=== PATIENT | female | born 1990 | race Two or more races ===

== ENCOUNTER 2017-05-30 12:09 | Emergency (ER) | payer MEDICAID ==
[~2017-05-30] VITALS: Ht 149.9 cm; Wt 62.4 kg
[2017-05-30 12:13] VITALS: BP 102/60
== END 2017-05-30 13:58 | disposition home or self-care (01) ==
LOC: ED 12:28
DX: O26.892 Other specified pregnancy related conditions, second trimester (principal); J02.8 Acute pharyngitis due to other specified organisms; Z3A.21 21 weeks gestation of pregnancy
CPT/HCPCS: 36415; 86308; 99283

== ENCOUNTER 2017-09-25 12:30 | Outpatient (CLI) | payer MEDICAID ==
[~2017-09-25] VITALS: Ht 149.9 cm; Wt 70.9 kg
[~2017-09-25 12:30] MED LIST: PREN1TAB60 PO
[2017-09-25 12:47] VITALS: BP 101/63
== END 2017-09-25 14:20 | disposition home or self-care (01) ==
LOC: LDOP 12:30
PROVIDERS: ATTEND Student in an Organized Health Care Education/Training Program
DX: O26.893 Other specified pregnancy related conditions, third trimester (principal); R10.9 Unspecified abdominal pain; Z3A.38 38 weeks gestation of pregnancy
CPT/HCPCS: 59025; 99211; G0463

== ENCOUNTER 2017-09-27 12:55 | Inpatient (IN) | payer MEDICAID ==
[~2017-09-27] VITALS: Ht 147.3 cm; Wt 70.4 kg
[2017-10-06] MEDS ORDERED: D5%-LACTATED RINGERS 1,000 ML IV SCH (06:14)
[2017-10-06] MEDS ORDERED: OXYTOCIN 30U/ 0.9% NaCL 500ML 500 ML IV PRN (06:14)
[2017-10-06] MEDS ORDERED: OXYTOCIN 30U/ 0.9% NaCL 500ML 500 ML IV ONE (06:14)
[2017-10-06] MEDS ORDERED: NEWBORN KIT ONE (06:21)
[2017-10-06] MEDS ORDERED: MISOPROSTOL 200 MCG TABLET ONE (06:21)
[2017-10-06] MEDS ORDERED: LIDOCAINE 1%, 10ML ONE (06:21)
[2017-10-06] MEDS ORDERED: OXYTOCIN 30U/ 0.9% NaCL 500ML 500 ML ONE (06:21)
[2017-10-06] MEDS: LACTATED RINGERS 1,000 ML IV SCH ×5 (06:29→23:10)
[2017-10-06] MEDS ORDERED: FENTANYL PF 100 MCG/2ML IVPush PRN (06:30)
[2017-10-06] MEDS ORDERED: METOCLOPRAMIDE 5 MG/ML, 2ML IVPush PRN (06:30)
[2017-10-06] MEDS ORDERED: SODIUM CITRATE/CITRIC ACID 30 ML UDC PO PRN (06:30)
[2017-10-06] MEDS ORDERED: ONDANSETRON 2MG/ML, 2ML IVPush PRN (06:30)
[2017-10-06] MEDS ORDERED: TERBUTALINE 1 MG/ML, 1ML IVPush PRN (06:30)
[2017-10-06] MEDS ORDERED: PENICILLIN GK 5,000,000 UNITS in DEXTROSE 5% 100 ML IVPB ONE (06:30)
[2017-10-06] MEDS ORDERED: FENTANYL PF 100 MCG/2ML IV PRN (06:30)
[2017-10-06 06:48] LABS: BASOPHILS # (AUTO) 0.02 x10^3/uL (0-0.1); BASOPHILS % (AUTO) 0 % (0-1); EOSINOPHILS # (AUTO) 0.08 x10^3/uL (0-0.4); EOSINOPHILS % (AUTO) 1 % (1-7); LYMPHOCYTES # (AUTO) 2.43 x10^3/uL (1-3.4); LYMPHOCYTES % (AUTO) 24 % (22-44); MD NO; MEAN CORPUSCULAR HEMOGLOBIN 24.9 pg (27.0-34.8); MEAN CORPUSCULAR HGB CONC 32.6 g/dL (32.4-35.8); MEAN CORPUSCULAR VOLUME 76.2 fL (80-100); MEAN PLATELET VOLUME 8.6 fL (7.4-10.4); MONOCYTES # (AUTO) 0.89 x10^3/uL (0.2-0.8); MONOCYTES % (AUTO) 9 % (2-9); NEUTROPHILS # (AUTO) 6.55 x10^3/uL (1.8-6.8); NEUTROPHILS % (AUTO) 66 % (42-75); PLATELET COUNT 370 x10^3/uL (130-400); RED BLOOD COUNT 4.34 x10^6/uL (3.82-5.3); RED CELL DISTRIBUTION WIDTH 16.7 % (9.6-15.2)
[2017-10-06] MEDS: PENICILLIN GK 2,500,000 UNITS in DEXTROSE 5% 100 ML IVPB SCH ×3 (10:58→18:48)
[2017-10-06] MEDS ORDERED: FENTANYL/BUPIV./NS/PF 250 ML EPIDCONT ONE (14:05)
[2017-10-06] MEDS ORDERED: LIDOCAINE-MPF 2% ,5ML ONE (14:05)
[2017-10-06] MEDS ORDERED: BUPIVACAINE 0.25% ONE (14:08)
[2017-10-06] MEDS ORDERED: FENTANYL/BUPIV./NS/PF 250 ML EPIDCONT SCH (15:10)
[2017-10-06] MEDS ORDERED: EPHEDRINE 50 MG/ML, 1ML IVPush PRN (15:30)
[2017-10-06] MEDS ORDERED: NALOXONE 0.4 MG/ML, 1ML IVPush PRN (15:30)
[2017-10-06] MEDS ORDERED: LACTATED RINGERS 1,000 ML IVBOLUS PRN (15:30)
[2017-10-06] MEDS: OXYTOCIN 30U/ 0.9% NaCL 500ML 500 ML IV SCH (20:45)
[2017-10-06] MEDS ORDERED: MISOPROSTOL 200 MCG TABLET PR PRN (21:00)
[2017-10-06] MEDS ORDERED: ACETAMINOPHEN 325 MG TABLET PO PRN (21:00)
[2017-10-06] MEDS ORDERED: OXYcodone/APAP 5/325MG TABLET PO PRN ×2 (21:00)
[2017-10-06] MEDS ORDERED: GLYCERIN ADULT SUPP PR PRN (21:00)
[2017-10-06] MEDS ORDERED: CARBOPROST TROMETHAMINE 250 MCG/ML, 1ML IM PRN (21:00)
[2017-10-06] MEDS ORDERED: METHYLERGONOVINE 0.2 MG/ML IM PRN (21:00)
[2017-10-06] MEDS ORDERED: IBUPROFEN 800 MG TABLET PO PRN (21:00)
[2017-10-06] MEDS ORDERED: ONDANSETRON 2MG/ML, 2ML IV PRN (21:00)
[2017-10-06] MEDS ORDERED: BISACODYL 10 MG SUPP PR PRN (21:00)
[2017-10-06] MEDS ORDERED: METOCLOPRAMIDE 5 MG/ML, 2ML IV PRN (21:00)
[2017-10-06] MEDS ORDERED: IBUPROFEN 600 MG TABLET ONE (21:09)
[2017-10-06 22:15] VITALS: BP 97/54
[2017-10-07 00:05] VITALS: BP 102/57
[2017-10-07 03:25] VITALS: BP 95/55
[2017-10-07] MEDS ORDERED: FLU VACC QS2017-18 (36MOS+) UP/PF 0.5 ML IM-VACC ONE (04:00)
[2017-10-07] MEDS: IBUPROFEN 600 MG TABLET PO PRN ×3 (05:28→19:40)
[2017-10-07 06:21] LABS: BASOPHILS # (AUTO) 0.03 x10^3/uL (0-0.1); BASOPHILS % (AUTO) 0 % (0-1); EOSINOPHILS # (AUTO) 0.02 x10^3/uL (0-0.4); EOSINOPHILS % (AUTO) 0 % (1-7); LYMPHOCYTES # (AUTO) 3.03 x10^3/uL (1-3.4); LYMPHOCYTES % (AUTO) 20 % (22-44); MD NO; MEAN CORPUSCULAR HEMOGLOBIN 24.7 pg (27.0-34.8); MEAN CORPUSCULAR HGB CONC 32.4 g/dL (32.4-35.8); MEAN CORPUSCULAR VOLUME 76.3 fL (80-100); MEAN PLATELET VOLUME 8.5 fL (7.4-10.4); MONOCYTES # (AUTO) 0.75 x10^3/uL (0.2-0.8); MONOCYTES % (AUTO) 5 % (2-9); NEUTROPHILS # (AUTO) 11.77 x10^3/uL (1.8-6.8); NEUTROPHILS % (AUTO) 76 % (42-75); PLATELET COUNT 325 x10^3/uL (130-400); RED BLOOD COUNT 3.84 x10^6/uL (3.82-5.3); RED CELL DISTRIBUTION WIDTH 16.8 % (9.6-15.2)
[2017-10-07] MEDS: OXYTOCIN 30U/ 0.9% NaCL 500ML 500 ML IV SCH (06:45)
[2017-10-07] MEDS ORDERED: PRENATAL VIT/IRON/FA 1 EACH TABLET ONE (07:20)
[2017-10-07] MEDS: DOCUSATE 100 MG CAPSULE PO PRN ×2 (07:25→19:39)
[2017-10-07 07:32] VITALS: BP 101/55
[2017-10-07] MEDS ORDERED: PRENATAL VIT/IRON/FA 1 EACH TABLET PO SCH (09:00)
[2017-10-07] MEDS ORDERED: IBUP-1222 PO (15:12)
[2017-10-07] MEDS ORDERED: FERR325T23 PO (15:12)
== END 2017-10-07 20:48 | disposition home or self-care (01) | DRG 775 ==
LOC: LDIP 10-06 06:08 → 2NW 10-06 21:48
PROVIDERS: ADMIT Student in an Organized Health Care Education/Training Program; ATTEND Student in an Organized Health Care Education/Training Program
PROC: 10E0XZZ Delivery of Products of Conception, External Approach (ICD-10-PCS; principal; 2017-10-06)
PROC: 3E0R3BZ Introduction of Anesthetic Agent into Spinal Canal, Percutaneous Approach (ICD-10-PCS; 2017-10-06)
PROC: 00HU33Z Insertion of Infusion Device into Spinal Canal, Percutaneous Approach (ICD-10-PCS; 2017-10-06)
PROC: 10907ZC Drainage of Amniotic Fluid, Therapeutic from Products of Conception, Via Natural or Artificial Opening (ICD-10-PCS; 2017-10-06)
PROC: 3E0234Z Introduction of Serum, Toxoid and Vaccine into Muscle, Percutaneous Approach (ICD-10-PCS; 2017-10-06)
DX: O80 Encounter for full-term uncomplicated delivery (principal); Z23 Encounter for immunization; Z37.0 Single live birth; Z3A.39 39 weeks gestation of pregnancy
CPT/HCPCS: 36415; 85025; 86850; 86900; 90686; J2540; J3490; J2590; J3010; J7120